=== PATIENT | female | born 1945 | race Caucasian/White ===

== ENCOUNTER 2017-07-06 08:22 | Day surgery (SDC) | payer MEDICARE, OTHER ==
[~2017-07-06] VITALS: Ht 167.6 cm; Wt 62.1 kg
[~2017-07-06 08:22] MED LIST: ASPIR 8181 MG PO; CO Q-10200 MG PO; FAMOTIDINE10 MG PO; GARLIC500 MG PO; LIPITOR20 MG PO; PRENATAL PLUS PO; VITAMIN C500 M1 PO; VITAMIN D32000 UNI1 PO
--- NOTE | 2017-07-06 10:04 | NUR ---
07/06/17 1004 Kate Calle 1000-PATIENT ARRIVED TO PACU ON 3L NC O2 SAT 99% PATIENT SLEEPING REACTIVE TO VOICE OPENING EYES AND BACK TO SLEEP. ABDOMEN SOFT
--- NOTE | 2017-07-06 11:06 | NUR ---
ICED WATER GIVEN. CALL LIGHT W/IN REACH. SPOUSE @ BS. OXYGEN REMAINS 100% ON 1L VIA NC. OXYGEN REMOVED @ THIS TIME.
--- NOTE | 2017-07-06 12:06 | NUR ---
LE 1150: PT RINGS CALL LIGHT AND REPORTS SHE FEELS "BETTER AND WOULD LIKE TO GO HOME." DISCHARGE INSTRUCTIONS GIVEN IN PRESENCE OF SPOUSE AND BOTH VERBALIZE UNDERSTANDING. PT DRESSES SELF IN PRESENCE OF SPOUSE AND TRANSFERS SELF TO . PT DOES REPORT INCREASED LIGHT HEADEDNESS AFTER DRESSING HERSELF. PT TRANSFERS HERSELF WELL AND IS DC HOME.
--- NOTE | 2017-07-08 10:58 | OR ---
[facility] [address] [place], [place] [address] Signed DATE OF OPERATION: 07/06/2017 SURGEON: Darius Souza MD PREOPERATIVE DIAGNOSES: 1. Internal hemorrhoids. 2. Diverticulosis. 3. Change in bowel habits with fecal urgency. 4. Constipation. POSTOPERATIVE DIAGNOSIS: Moderate internal hemorrhoids. PROCEDURE: Colonoscopy without biopsy. ESTIMATED BLOOD LOSS: None. INDICATIONS: Sinan is a 71-year-old female, who had her last colonoscopy in 2009. At that time, she was having constipation with a history of internal hemorrhoids. She had 2 internal hemorrhoids at the 1 and 5 o'clock positions. They were little irritated at that time. She also had just a little bit of diverticulosis. She told me she puts all over around her perineum and the anus to protect the skin. However, she got GI bug in early May ended up with lots of vomiting and diarrhea. She ended up having some bleeding from the rectum. She felt like there was tissue coming out of the anus. She also felt a sense of fecal urgency common with swollen hemorrhoids. This describes a change in bowel habits once again. Initially, it was not improving. However, today she told me it has finally gotten better with the diarrhea resolved along with the rectal bleeding and that since the swelling at the anus. However, in the meantime, she had been asked to see me for a repeat colonoscopy. She told me there is no family history of colon cancer or polyps. In the office, I gave her a pamphlet on colonoscopy and we looked at that together along with the risks including, but not limited to gas bloating, crampy abdominal pain, bleeding, perforation, requiring surgery, and missed diagnosis. We also discussed the need for IV conscious sedation. She has done well with Versed and fentanyl in the past. She expressed understanding and wished to proceed. PROCEDURE NOTE: Sinan was taken into our endoscopy suite and placed in the left lateral decubitus Electronically Signed By: DARIUS SOUZA MD 07/08/17 1058 PATIENT NAME: SINAN BARRIOS OPERATIVE REPORT DATE OF : 41 PHYSICIAN: DARIUS SOUZA MD REPORT #: [id number] REPORT IS CONFIDENTIAL AND NOT TO BE RELEASED WITHOUT AUTHORIZATION [facility] [address] [place], [place] [address] Signed position. She was given IV sedation with 6 mg of Versed and 150 mcg of fentanyl. A digital rectal exam was performed and she really has excellent perianal hygiene. There was no visible evidence of any external hemorrhoid. She has good sphincter tone. No masses noted. The adult colonoscope was introduced and advanced under direct visualization of camera. Sinan is slight of build and she has a long narrow redundant sigmoid and left colon. It took extra sedation and abdominal compression in order to advance the scope. Once we got above the sigmoid colon, it traveled fairly readily around into the cecum itself. Her prep was good. We could easily see the appendiceal orifice. The scope was then slowly withdrawn. We saw no pathology throughout the entire colon. However, the sigmoid colon was a bit narrow. We consequently never saw any diverticula. Once in the rectum, the scope was retroflexed and we could see her 2 moderate internal hemorrhoids. It looks like one was ulcerated and healing. I suspect this was the one that caused her bleeding for several weeks. After this, the gas was suctioned out and the colonoscope removed. Sinan tolerated the procedure quite well. RECOMMENDATIONS: She is welcome to follow on her previous conservative measures with respect to the hemorrhoid. She has done excellent in that regard. If she has any concerns, she is welcome to come see me in the office. Otherwise, we will see her back in 10 years for repeat colonoscopy as long as her health holds up. Darius Souza MD ALB/MODL /[id number] cc: MD Verónica Lopez MD Michael John Brunsman, MD Electronically Signed By: DARIUS SOUZA MD 07/08/17 1058 PATIENT NAME: SINAN BARRIOS OPERATIVE REPORT DATE OF : 41 PHYSICIAN: DARIUS SOUZA MD REPORT #: [id number] REPORT IS CONFIDENTIAL AND NOT TO BE RELEASED WITHOUT AUTHORIZATION
[2017-08-10] MEDS ORDERED: VITAMIN D32000 UNI1 PO (10:02)
[2017-08-10] MEDS ORDERED: ASPIR-LOW81 MG PO (10:03)
== END 2017-07-06 12:00 | disposition home or self-care (01) ==
LOC: OPS 08:22 → DS 08:22 → OPS 09:45 → DS 09:45 → OPS 12:00
PROVIDERS: Colon & Rectal Surgery
PROC: 0DJD8ZZ Inspection of Lower Intestinal Tract, Via Natural or Artificial Opening Endoscopic (ICD-10-PCS; principal; 2017-07-06 09:45)
DX: K64.8 Other hemorrhoids (principal); K59.00 Constipation, unspecified; R15.2 Fecal urgency; K21.9 Gastro-esophageal reflux disease without esophagitis; E78.5 Hyperlipidemia, unspecified; E55.9 Vitamin D deficiency, unspecified; M81.0 Age-related osteoporosis without current pathological fracture; N95.9 Unspecified menopausal and perimenopausal disorder; Z79.82 Long term (current) use of aspirin; Z79.899 Other long term (current) drug therapy; Z90.710 Acquired absence of both cervix and uterus; Z98.890 Other specified postprocedural states; Z88.1 Allergy status to other antibiotic agents
CPT/HCPCS: 99153; G0500; J2250; J3010; J7120

== ENCOUNTER 2017-08-13 05:35 | Day surgery (SDC) | payer MEDICARE, OTHER ==
[~2017-08-13] VITALS: Ht 167.6 cm; Wt 59.9 kg
[~2017-08-13 05:35] MED LIST changes: +ASPIR-LOW81 MG PO
--- NOTE | 2017-08-13 08:58 | NUR ---
08/13/17 0876 Tamar Moody 1117 PT ARRIVED NONAROUSABLE WITH ORAL AIRWAY IN PLACE. ON 10L VIA MASK. JAW CHRUST NEEDED TO MAINTAIN AIRWAY.
--- NOTE | 2017-08-13 10:15 | NUR ---
[id number]- PT ARRIVES TO DS RM 10 FROM PACU. PT IS ALERT AND AWAKE. UPON ARRIVAL PT REQUETS TO GET UP AND USE BR. PT AMBULATES TO BR WITH 2 RN ASSIST. PT ABLE TO VOID QS. PT HAS ABD PAD AND BRIEFS IN PLACE. PT PROVIDED WARM BLANKET AND DEANN HUGGER IN PLACE ON WARM. 1015: PT STATES SHE FEELS THE NEED TO VOID AGAIN. PT UP TO BR WITH RN ASSIST. PT AMBULATES WELL AND VOIDS QS. PT STATES THERE WAS A SMALL BLOOD CLOT WHEN LIGHTLY WIPING ANUS. PT BACK IN BED WITH DEANN HUGGER ON WARM, SCD'S IN PLACE, AND CALL LIGHT W/IN REACH.
--- NOTE | 2017-08-13 10:28 | NUR ---
PT PROVIDED ICED WATER AND CRACKERS. BEDSIDE TABLE AVAILABLE WITH TISSUES FOR COUGH/SPUTUM. CALL LIGHT REMAINS IN REACH. PT RESTING IN BED WITH EYES CLOSED.
--- NOTE | 2017-08-13 11:02 | NUR ---
PT TOLERATES PO WELL WITH NO C/O NAUSEA. PT STATES SHE DOES NOT HAVE MUCH PAIN BUT A "FEELING OF PRESSURE IN BOTTOM." PT UP TO BR WITH RN ASSIST. NEW ABD PAD PROVIDED. PT BACK TO BED, CALL LIGHT AT SIDE. NO FURTHER REQUESTS AT THIS TIME.
--- NOTE | 2017-08-13 11:45 | OR ---
[facility] [address] [place], [place] [address] Signed DATE OF OPERATION: 08/13/2017 SURGEON: Darius Wheatley MD PREOPERATIVE DIAGNOSES: 1. Internal hemorrhoids x2. 2. Small external hemorrhoids bilaterally. POSTOPERATIVE DIAGNOSES: 1. Right and left lateral internal hemorrhoids. 2. Right and left small external hemorrhoids. PROCEDURE: Internal and external hemorrhoidectomy x2. ESTIMATED BLOOD LOSS: Minimal. INDICATIONS: Sinan is a 71-year-old female, who has been having trouble with ongoing rectal bleeding. We know she has moderate internal hemorrhoids from her previous colonoscopy as well as anoscopy. Two or more prominent than the rest of the surrounding tissue. The one on the right has a little bit of ulceration and irritation. We suspect this is the one it continues to bleed. She has tried conservative measures and the bleeding continues. She said the diarrhea actually seems to be worse in constipation. She came in the office after the colonoscopy with respect to the ongoing rectal bleeding. She told me her had hemorrhoid banding and it was awful. I told her that is because the bands were placed too low. Nevertheless, she was very reticent to have any banding performed. I gave her a [employer] brochure on hemorrhoids and we looked that very carefully. I circled the section relevant to her. I explained to her that her other option to be going to the operating room. We can perform a standard hemorrhoidectomy for those 2 internal hemorrhoids and bring them out onto the external component. We also talked about the possibility of PPH stapler, although she is fairly small. I am not completely convinced the hemorrhoid staple were actually fit up through her anal canal. We reviewed both of those surgeries in detail. She understands expected intraop and postop course. There is risk to surgery including, but not limited to bleeding, infection, scarring, change in contour of the skin, anal stenosis, recurrent hemorrhoids and ongoing bleeding. She had expressed understanding and wished to proceed. I met with Sinan and her family in our preop area. She actually brought the [employer] Electronically Signed By: DARIUS WHEATLEY MD 08/13/17 1145 PATIENT NAME: SINAN BARRIOS OPERATIVE REPORT DATE OF : 41 REPORT #: [id number] PHYSICIAN: DARIUS WHEATLEY MD PCP: Verónica MASTERS MD REPORT IS CONFIDENTIAL AND NOT TO BE RELEASED WITHOUT AUTHORIZATION [facility] [address] [place] [id number] Signed brochure with her and we went through it once again in detail. She actually read the whole [employer] brochure and she made herself very educated and had very good questions for me today. I once again reiterated to Sinan and the family that the PPH stapler may not actually fit in her anal canal. We may just proceed with standard hemorrhoid surgery. She had expressed understanding and wished to proceed. PROCEDURE NOTE: Sinan was taken into our operating room and placed in the prone leonardo-knife position under general endotracheal tube anesthesia. Appropriate padding and monitoring were placed. She was given preoperative antibiotics along with subcutaneous heparin. SCDs were utilized. She was then prepped and draped in the usual sterile fashion. After this, a digital rectal exam was performed and again on the right and left lateral side, she had a cluster of very small external hemorrhoids and those could also bleed with abrasion from the toilet paper. The half-jaffe retractor was then inserted and we examined the full circumference of the anal canal and once again she has the right and left lateral internal hemorrhoid components, the right was slightly larger than the left and the right was little irritated and it may also be the source of her bleeding. We proceeded with the hemorrhoid on the left 1st. A 2-0 chromic was placed at the apex of the hemorrhoid and then the entire hemorrhoid bundle, internal and external component was carefully excised with the help of the cautery just a small piece of the internal sphincter muscle came out with our hemorrhoid. There was a little bit of bleeding in that area, so we cauterized it gently with good hemostasis. After this, the internal component was closed with a running locked 2-0 chromic suture. The external component was left open to heal on secondarily. In a similar fashion, we then addressed the slightly larger hemorrhoid on the right. In an identical fashion, it was removed along with the external component. We then injected local anesthetic in and around the entire anus. Dry gauze was then applied to her anus along with mesh underwear. She was then rotated into the supine position on her hospital bed, weaned from her anesthesia, extubated in the OR, and taken to recovery room in stable condition. Darius Wheatley MD [facility] /[id number] cc: Darius Wheatley MD Electronically Signed By: DARIUS WHEATLEY MD 08/13/17 1145 PATIENT NAME: SINAN BARRIOS OPERATIVE REPORT DATE OF : 41 REPORT #: [id number] PHYSICIAN: DARIUS WHEATLEY MD PCP: Verónica MASTERS MD REPORT IS CONFIDENTIAL AND NOT TO BE RELEASED WITHOUT AUTHORIZATION [address] [address] Signed Verónica Masters MD Copies: DARIUS WHEATLEY MD, W NORMAN MD ~ Electronically Signed By: DARIUS WHEATLEY MD 08/13/17 1145 PATIENT NAME: SINAN BARRIOS OPERATIVE REPORT DATE OF : 41 REPORT #: [id number] PHYSICIAN: DARIUS WHEATLEY MD PCP: Verónica MASTERS MD REPORT IS CONFIDENTIAL AND NOT TO BE RELEASED WITHOUT AUTHORIZATION
[2017-08-13] MEDS ORDERED: NORCO 5-325 TA1 EACH PO (12:03)
--- NOTE | 2017-08-13 15:44 | NUR ---
[id number]: PT FAMILY IN ROOM AT BEDSIDE. DC CRITERIA MET AND PT AGREES SHE IS READY TO GO HOME. DETAILED DC INSTRUCTIONS GIVEN IN THE PRESENCE OF PT AND FAMILY. PT VERBALIZES AN UNDERSTANDING OF DC INSTRUCTIONS AND ALL QUESTIONS ARE ANSWERED. PT DC'S FROM DS RM 10 VIA WHEELCHAIR WITH .
== END 2017-08-13 12:20 | disposition home or self-care (01) ==
LOC: DS 05:35
PROVIDERS: Colon & Rectal Surgery
PROC: 06BY0ZC Excision of Hemorrhoidal Plexus, Open Approach (ICD-10-PCS; principal; 2017-08-13 06:45)
DX: K64.8 Other hemorrhoids (principal); K64.4 Residual hemorrhoidal skin tags; K21.9 Gastro-esophageal reflux disease without esophagitis; E78.5 Hyperlipidemia, unspecified; M81.0 Age-related osteoporosis without current pathological fracture; E55.9 Vitamin D deficiency, unspecified; F41.9 Anxiety disorder, unspecified; R42 Dizziness and giddiness; R05 Cough; M54.5 Low back pain; G89.29 Other chronic pain; R94.31 Abnormal electrocardiogram [ECG] [EKG]; Z90.710 Acquired absence of both cervix and uterus; Z98.890 Other specified postprocedural states; Z88.1 Allergy status to other antibiotic agents; Z79.82 Long term (current) use of aspirin; Z79.899 Other long term (current) drug therapy; Z90.89 Acquired absence of other organs; Z90.49 Acquired absence of other specified parts of digestive tract
CPT/HCPCS: 00902; 88304; J0330; J0694; J1100; J1644; J1885; J2250; J2405; J2704; J2765; J3010; J7120